=== PATIENT | female | born 1950 | race Caucasian/White ===

== ENCOUNTER 2017-06-03 10:37 | Day surgery (SDC) | payer MEDICARE, OTHER ==
[~2017-06-03 10:37] MED LIST: RINGER'S SOLUTION,LACTATED 1,000 ML IV PRN
--- NOTE | 2017-06-03 12:27 | OR ---
Operative Report - Dictated Report Narrative: Date: 06/03/2017 Preop dx: screening colonoscopy, LLQ abdominal pain Postop dx: hyperplastic polyp at 10cm Procedure Attempted colonoscopy to 20 cm Staff surgeon: Tonny Stuart MD Anesthesia: MAC per [employer] OPERATOR EBL: none Specimen: none Description: After informed consent and appropriate sedation the patient was placed in the left lateral decubitus position. A fleixble fiberoptic video colonoscope was introduced and advanced under direct vision. The preparation was poor and we could not advance safely any further than 20 cm. A hyperplastic polyp was noted at 10 cm in the rectal vault. The procedure was abandoned and tolerated the procedure well without apparent complications and was discharged from the endoscopy suite in stable condition. In recovery, once lucent, her options were reviewed: 1-to try more prep today and redo the scope later today, 2-virtual colonoscopy by CT, 3-ACBE, 4-do nothing. She has opted for a BE.
[2017-06-03 12:42] VITALS: BP 103/67
== END 2017-06-03 10:38 | disposition home or self-care (01) ==
LOC: AMB 10:37
PROVIDERS: ATTEND Specialist
PROC: 0DJD8ZZ Inspection of Lower Intestinal Tract, Via Natural or Artificial Opening Endoscopic (ICD-10-PCS; principal; 2017-06-03 11:45)
DX: Z12.11 Encounter for screening for malignant neoplasm of colon (principal); K62.1 Rectal polyp; J44.9 Chronic obstructive pulmonary disease, unspecified; R10.32 Left lower quadrant pain; F17.200 Nicotine dependence, unspecified, uncomplicated; Z68.1 Body mass index [BMI] 19.9 or less, adult